=== PATIENT | female | born 1945 | race Caucasian/White ===

== ENCOUNTER 2021-01-12 13:50 | Outpatient (RCR) | payer MEDICARE, SELFPAY | END 2021-01-12 15:00 | disposition home or self-care (01) | LOC: HO.WCC 13:50 | PROVIDERS: PCP Nurse Practitioner Family; Visit Provider Physician Assistant | DX: I89.0 Lymphedema, not elsewhere classified (principal); K74.69 Other cirrhosis of liver; Q76.0 Spina bifida occulta; I10 Essential (primary) hypertension | CPT/HCPCS: 99213 ==